=== PATIENT | female | born 1935 | race Caucasian/White ===

== ENCOUNTER → 2017-11-16 | Outpatient (REF) | payer MEDICARE ==
[2017-11-16 19:13] LABS: FERRITIN 93 NG/ML (8-252); IRON (FE) 34 UG/DL (50-170); PERCENT SATURATION 14.2 % (13.2-45.0); TOTAL IRON BINDING CAPACITY 239 UG/DL (250-450); TOTAL PROTEIN 5.6 GM/DL (6.4-8.2)
[2017-11-20 11:50] LABS: ALBUMIN 3.01 GM/DL (3.29-5.55); ALBUMIN % 53.8 % (55.8-66.1); ALPHA-1-GLOBULIN % 8.9 % (2.9-4.9); ALPHA-2-GLOBULINS 0.81 GM/DL (0.42-0.99); ALPHA-2-GLOBULINS % 14.5 % (7.1-11.8); BETA-1-GLOBULINS 0.32 GM/DL (0.28-0.60); BETA-1-GLOBULINS % 5.7 % (4.7-7.2); BETA-2-GLOBULINS 0.29 GM/DL (0.19-0.55); BETA-2-GLOBULINS % 5.2 % (3.2-6.5); GAMMA GLOBULIN % 11.9 % (11.1-18.8); GAMMA GLOBULINS 0.67 GM/DL (0.65-1.58)
[2017-11-20 12:50] LABS: IMMUNOTYPING SERUM KAPPA ABNORMAL (NORMAL)
[2017-11-20 14:11] LABS: FREE KAPPA LIGHT CHAINS SERUM 9960.5 mg/L (3.3-19.4); FREE LAMBDA LIGHT CHAINS SERUM 18.8 mg/L (5.7-26.3); KAPPA/LAMBDA RATIO SERUM 529.81 (0.26-1.65)
== END ==
LOC: M LAB REF 17:07
DX: R80.9 Proteinuria, unspecified (principal); N18.4 Chronic kidney disease, stage 4 (severe); D63.1 Anemia in chronic kidney disease; L97.524 Non-pressure chronic ulcer of other part of left foot with necrosis of bone; M85.872 Other specified disorders of bone density and structure, left ankle and foot
CPT/HCPCS: 83550

== ENCOUNTER → 2017-11-16 | Outpatient (REF) | payer MEDICARE | LOC: M LAB REF 13:49 | DX: L97.524 Non-pressure chronic ulcer of other part of left foot with necrosis of bone (principal) | CPT/HCPCS: 88311 ==